=== PATIENT | male | born 1970 | race American Indian/Alaskan Native ===

== ENCOUNTER 2021-05-09 03:23 | Emergency (ER) | payer MEDICARE, MEDICAID, SELFPAY ==
[2021-05-09] VITALS (10 sets, daily range): BP systolic 102–145; BP diastolic 67–103; PULSE 108–144; RESP 12–24; TEMP 36.6; O2SAT 95–98
--- NOTE | 2021-05-09 03:15 | RT.EKG_ITS ---
APPROVED REPORT Exam: Resting ECG Reason for Exam: chest pain Patient Location: E HR:124 bpm ECG Measurements Heart Rate 124 AXIS [place] 132 P 63 QRSd 78 QRS 58 QT 304 T 39 QTc 437 Conclusion Sinus tachycardia...rate> 99 Probable left atrial enlargement...P >50mS, <-0.10mV V1 Physician: no stemi
--- NOTE | 2021-05-09 03:30 | DI.RAD_ITS ---
Exam(s) XR PORTABLE CHEST AP EXAM: XR PORTABLE CHEST AP CLINICAL HISTORY: central chest pain after arrest. TECHNIQUE: 2D digital imaging was performed. COMPARISON: No exams were available for comparison FINDINGS: Heart size is normal. The mediastinum is not widened. Lungs are clear. No infiltrates nor obvious pleural effusions. IMPRESSION: No acute pulmonary findings on this single AP portable view of the chest. DATA REPOSITORY: RADIATION DOSE DELIVERED: All CT scans at this facility use at least one of these dose optimization techniques: automated exposure control; mA and/or kV adjustment per patient size (includes targeted e xams where dose is matched to clinical indication); or iterative reconstruction.
--- NOTE | 2021-05-09 03:39 | ED.GENADUL_ITS ---
Discharge Plan Disposition Patient Disposition: HOME Condition: Good Discharge Details Clinical Impression: Musculoskeletal chest pain ED Provider: Dwight Call Home Meds and New Rx's Prescriptions: Continued albuterol 90 mcg/actuation Aerosol 2 mcg INHALATION QID PRN PRNRF: 0 escitalopram oxalate [Lexapro] 20 mg Tablet 20 mg PO DAILY RF: 0 Discharge Instructions Instructions: Chest Pain (ED) Additional Instructions: At this time your symptoms do not appear consistent with a heart attack. Your symptoms are likely secondary to a muscle sprain and spasm. If you notice any worsening of your symptoms, or any new symptoms such as vomiting, diarrhea, fever, chills, shortness of breath, chest pain, numbness, weakness, or fainting , please return immediately to the emergency department for reevaluation. Please follow up with your primary care provider as soon as possible for reassessment and reevaluation. As always, it was a pleasure participating in your medical care today. Medical Decision Making 50-year-old male who is new to the area, presents today for medical evaluation after being brought from the police department. Patient admits to a history of high cholesterol, mini stroke, emphysema, but is not on any blood thinners. Patient contacted 911 for various concerns earlier today, and then eventually was put into custody. During which. Patient states he developed chest pain which she attributed to panic attack. EMS was called, patient refus ed evaluation by EMS. Patient was then brought to the emergency department for further management. Patient describes the pain is achy in the center of his chest and brought about by anxiety and panic. He denies any tearing or ripping sensation. He denies any previous cardiac history. He denies any cocaine use but does admit to alcohol use this evening. He denies any exertional dyspnea. He denies any recent traumas. He does admit to tobacco abuse. No other complaints at this time. No other modifying factors. Physical exam demonstrates reproducible anterior chest wall pain. Bedside u ltrasound demonstrates no evidence of pericardial effusion. No signs of significant wall motion abnormalities that I can appreciate. Differential is highest for musculoskeletal chest pain and anxiety, however cardiac etiology is certainly on the differential. Symptoms have been present for greater than 3 hours at this time. We will get screening EKG and troponin, portable chest x- ray, get baby aspirin, monitor closely and reassess. Patient remains in police custody. 4:17 AM Laboratory work-up is returned, no significant abnormalities. No white count bandemia or left shift. Troponin normal. Lipase normal. Chest x-ray negative for acute process. Bedside ultrasound shows no significant abnormalities. Patient has reproducible musculoskeletal chest pain, and I suspect this is the c ause of the patient's symptoms. Symptoms appear inconsistent with ACS. Patient stable for discharge. I have extensively reviewed the treatment plan and discharge instructions with the patient. I have addressed all patient concerns at this time. The patient was made aware of what symptoms to monitor for that would warrant a return to the emergency department. Discussed the plan with the patient, they demonstrate verbal understanding and agreement with our assessment and plan at this time. The documentation in this chart was dictated using [employer] dictation software. Please excuse any dictation errors. FINDINGS: Lungs: Unremarkable. No consolidation. Pleural spaces: Unremarkable. No pleural effusion. No pneumothorax. Heart/Mediastinum: Unremarkable. No cardiomegaly. Bones/joints: Unremarkable. IMPRESSION: No acute findings. Thank you for allowing us to participate in the care of your patient. Dictated and Authenticated by: Luis Borjas MD 05/09/2021 4:15 AM Eastern Time ([place] & [place]) HPI General Date/Time Provider Initiated Documentation: 05/09/21 03:24 . HPI Narrative: 50-year-old male who is new to the area, presents today for medical evaluation after being brought from the police department. Patient admits to a history of high cholesterol, mini stroke, emphysema, but is not on any blood thinners. Patient contacted 911 for various concerns earlier today, and then eventually was put into custody. During which. Patient states he developed chest pain which she attributed to panic attack. EMS was called, patient refused evaluation by EMS. Patient was then brought to the emergency department for further management. Patient describes the pain is achy in the center of his chest and brought about by anxiety and panic. He denies any tearing or ripping sensation. He denies any previous cardiac history. He denies any cocaine use but does admit to alcohol use this evening. He denies any exertional dyspnea. He denies any recent traumas. He does admit to tobacco abuse. No other complaints at this time. No other modifying factors. Related Data Home Medications Medication Instructions Recorded Confirmed albuterol 2 mcg INHALATION QID PRN PRN 05/09/21 05/09/21 escitalopram oxalate [Lexapro] 20 mg PO DAILY 05/09/21 05/09/21 Allergies Allergy/AdvReac Type Severity Reaction Status Date / Time No Known Drug Allergies Allergy Unverified 05/09/21 03:38 General Stated Complaint: Chest Pain MAC: 2 Review of Systems All systems reviewed & are unremarkable except as noted in HPI and below PFSH Social History Smoking/Tobacco Use Status: Current every day Tobacco Type: cigarettes Smoking risk assessment performed?: Yes Alcohol Intake: current Alcohol Intake frequency: a few times a week Alcohol type: beer Drug use: Rarely Substance use type: marijuana Do you feel safe at home: Yes Do you feel safe in your relationship?: Yes Exam Narrative Exam Narrative: 1.Const: Well-nourished, Well-developed, appearing stated age 2.Eyes: PERRL, no conjunctival injection, and symmetrical lids. 3.ENT: Atraumatic external nose and ears. Moist MM. Neck: Symmetric, trachea midline, No thyromegaly. 4.CVS: +S1/S2, No murmurs or gallops. Peripheral pulses 2+ and equal in all extremities. Brisk capillary refill in all extremities.. Reproducible anterior chest wall chest pain, which the patient states is the pain that he is feeling. 5.RESP: Unlabored respiratory effort. Clear to auscultation bilaterally. No wheezes rales or rhonchi 6.GI: Soft, Nontender/Nondistended, No hepatosplenomegaly. No guarding or rebound. 7.MSK: Normocephalic/Atraumatic, Extremities w/o deformity or ttp No cyanosis or clubbing, Normal movement of all extremities, no calf tenderness 8.Skin: Warm, Dry. No rashes or lesions. 9.Neuro: compensation specialist II-XII grossly intact. Sensation grossly intact, no focal neurologic deficits. 10.Psych: (AAO) x3. Appropriate mood and affect Course Vital Signs Vital signs: Vital Signs Temperature 36.6 C 05/09/21 03:30 Pulse 128 H 05/09/21 03:30 Respiratory Rate 21 05/09/21 03:30 Blood Pressure 131/103 H 05/09/21 03:30 Pulse Oximetry 96 05/09/21 03:30 Temperature 36.6 C 05/09/21 03:30 Pulse 128 H 05/09/21 03:30 Respiratory Rate 21 05/09/21 03:30 Blood Pressure 131/103 H 05/09/21 03:30 Blood Pressure Position Supine 05/09/21 03:30 Pulse Oximetry 96 05/09/21 03:30 Oxygen Delivery Method Room Air 05/09/21 03:30 Oxygen Flow Rate 0 05/09/21 03:30 Pain Level 7 05/09/21 03:30
[2021-05-09 03:46] LABS: Abs Immature Grans 0.04 10^3/uL (0.0-0.06); Absolute Eosinophil Count 0.11 10^3/uL (0.0-0.7); Absolute Lymphocyte Count 1.48 10^3/uL (1.2-3.4); Absolute Monocyte Count 0.71 10^3/uL (0.1-0.8); Absolute Neutrophil Count 5.34 10^3/uL (1.2-6.7); Basophils % 1.3; Eosinophils % 1.4; HCT 46.4 % (40.0-50.0); HGB 15.3 g/dL (13.5-17.5); Immature Grans % 0.5; MCH 30.7 pg (27.0-33.0); MCV 93.2 fL (80-95); MPV 9.2 fL (8.0-11.0); Monocytes % 9.1; Neutrophils % 68.7; Nucleated RBC 0 %; Platelet Count 353 10^3/uL (130-400); RBC 4.98 10^6/uL (4.36-5.78); RDW 12.8 % (11.8-14.1); RDW-SD 43.8 fL; WBC 7.78 10^3/uL (4.4-10.8)
[2021-05-09] MEDS: Normal Saline 1,000 ML 1000 ML IV (03:46)
[2021-05-09] MEDS: Aspirin 81 MG CHEW 324 MG CH (03:46)
[2021-05-09 04:00] LABS: ALT 41 U/L (16-63); AST 33 U/L (15-37); Alkaline Phosphatase 80 U/L (46-116); Anion Gap 15.1 mmol/L (3-11); BUN 7 mg/dL (7-18); Bilirubin, Total 0.2 mg/dL (0.2-1.0); CO2 20.9 mmol/L (21.0-32.0); CREATININE 0.9 mg/dL (0.70-1.30); Calcium 8.7 mg/dL (8.5-10.1); Chloride 108 mmol/L (98-107); ETHANOL BLOOD 171.9 mg/dL (<3); Glucose 105 mg/dL (74-106); Lipase 308 U/L (73-393); Sodium 144 mmol/L (136-145); Total Protein 7.7 g/dL (6.4-8.2)
[2021-05-09 04:05] LABS: Troponin I < 0.05 ng/mL (<0.06)
--- NOTE | 2021-05-09 04:15 | DI.VRAD_ITS ---
PROCEDURE INFORMATION: Exam: XR Chest Exam date and time: 05/09/2021 3:39 AM Age: 50 years old Clinical indication: Patient HX: Central chest pain after arrest TECHNIQUE: Imaging protocol: XR of the chest. Views: 1 view. COMPARISON: No relevant prior studies available. FINDINGS: Lungs: Unremarkable. No consolidation. Pleural spaces: Unremarkable. No pleural effusion. No pneumothorax. Heart/Mediastinum: Unremarkable. No cardiomegaly. Bones/joints: Unremarkable. IMPRESSION: No acute findings. Dictated and Authenticated by: Luis Borjas MD. Ordering:BALWINDER Quintanilla MD
== END 2021-05-09 04:20 | disposition home or self-care (01) ==
LOC: ER 04:31
PROVIDERS: Emergency Provider Student in an Organized Health Care Education/Training Program
DX: R07.89 Other chest pain (principal); F10.10 Alcohol abuse, uncomplicated; Y90.6 Blood alcohol level of 120-199 mg/100 ml
CPT/HCPCS: 36415; 80053; 80307; 83690; 93005; 96360; 99285; 71045; 80320; 84484; 85025; 93010; 99284

== ENCOUNTER 2024-06-08 09:54 | Outpatient (REF) | payer MEDICARE, SELFPAY ==
--- OUTSIDE RECORDS SUMMARY | 2024-06-08 09:56 | XMS_ITS | Continuity of Care Document ---
Author Organization [place] [facility] Address [address] [place] [address] Assessment No assessment recorded. Plan of Treatment Reminders Order Date Submit Date Provider Last Modified By Organization Details Last Modified Time Details Appointments Nurse Visit 2023 08:30A M Not available Not available Not available Follow Up 2023 08:30A M Not available Not available Not available Lab venipunct ure 2023 024 [facility] (Registration ), [address] [place] [address] [place], [address], 06/08/2024 08:54:26 Referral None recorded. Procedures None recorded. Surgeries None recorded. Imaging None recorded. Medication Orders None recorded. Patient TargetsNo targets recorded. Patient Instructions Encounter Date Encounter Id Patient Instructions Last Modified By Organization Details Last Modified Time 06/08/2024 [id number] specimen collection & handling* Not available 06/08/2024 08:54:26 Reason for Referral None Reported. Results Created Date Observation Date Name Description Value Unit Range Abnormal Flag Note LastModifiedBy Organization Detail LastModifiedTime 06/08/2006/08/2024 speci men colle ction & handl ing* Specimen collection and handling performed today: Yes Not Available [facility] [address], [place], [address], 06/08/2024 08:19:10 Result Notes None recorded. Problems Name Problem SNOMED Code Status Onset Date Resolution Date Notes Provider Name and Address Organization Details Recorded Time Alcohol dependence 80778591 Active 2023 KB HARMON MA null, [facility]. 4 09:49:11 Bilateral shoulder joint pain 5017057006576 9104 Active 2023 KB HARMON MA null, [facility] 4 09:49:41 Chest pain 79323986 Active 2023 KB HARMON MA null, [facility]. 4 09:49:54 Chronic neck pain 0920414040703 Active 2023 KB HARMON MA null, [facility] 4 09:50:19 Delusional disorder 31944038 Active 2023 KB HARMON MA null, [facility] 4 09:53:47 Depressive disorder 57806464 Active 2023 KB HARMON MA null, [facility] 4 09:53:57 Dysplastic nevus of skin 909408290 Active 2023 KB HARMON MA null, [facility] 4 09:55:37 Functional abdominal pain syndrome 834849365 Active 2023 KB HARMON MA null, [facility]. 4 09:56:00 Gastritis 7345971 Active 2023 KB HARMON MA null, [facility]. 4 09:56:10 Hip pain 99785317 Active 2023 KB HARMON MA null, [facility]. 4 09:56:19 History of atypical nevus 2057931027148 Active 2023 KB HARMON MA null, [facility] 4 09:56:43 History of transient ischemic attack 398472725 Active 2023 KB HARMON MA null, [facility] 4 09:57:04 Housing problem 518293131 Active 2023 KB HARMON MA null, [facility] 4 09:57:15 Hypertensi ve disorder 52155701 Active 2023 KB HARMON MA null, [facility] 4 09:57:27 Hyperlipid emia 86359902 Active 2023 KB HARMON MA null, [facility] 4 09:57:35 Idiopathic peripheral neuropathy 69765227 Active 2023 KB HARMON MA null, [facility] 4 09:58:06 Multiple nodules of lung 141835471 Active 2023 KB HARMON MA null, [facility] 4 09:58:23 Pain in right hip joint 6456645066167 02 Active 2023 KB HARMON MA null, [facility] 4 09:58:40 Painful spasm of anus 67006469 Active 2023 KB HARMON MA null, [facility] 4 09:58:55 Posttrauma tic stress disorder 15745477 Active 2023 KB HARMON MA null, [facility] 4 09:59:18 Psychotic disorder 19440288 Active 2023 KB HARMON MA null, [facility]. 4 09:59:38 Shoulder pain 40018797 Active 2023 KB HARMON MA null, [facility]. 4 10:00:35 Smoker 97990814 Active 2023 KB HARMON MA null, [facility] 4 10:00:42 Transient cerebral ischemia 419086498 Active 2023 KB HARMON MA null, [facility] 4 10:00:59 Vitamin D deficiency 56295618 Active 2023 MEGHAN SALAZAR, [facility] 10:01:30 Problem Notes None recorded. Medical Equipment None Reported. Allergies Allergen ID Allergen Name Allergen Category Reaction Reaction Severity Criticality Documentation Date Start Date Code Code System Note Provider Name and Address Organization Details Recorded Time 80471 aspirin medicatio n Not available Not available Not available 05/14/2024 1191 RxNorm MEGHAN SALAZAR, [facility] 10:05:22 28621 weed pollen environme nt,medica tion Not available Not available Not available 05/14/2024 MEGHAN SALAZAR, [facility] 10:05:33 Medications Name Sig Start Date Stop Date Status Note LastModified by Organization Details LastModified Time pravastatin 10 mg tablet TAKE 1 TABLET BY MOUTH ONCE DAILY AT NIGHT AT BEDTIME 06/07 completed Not Available Not Available Not Available diltiazem CD 120 mg capsule,ext ended release 24 hr TAKE 1 CAPSULE BY MOUTH ONCE DAILY active Not Available Not Available No t Available pravastatin 20 mg tablet TAKE 1 TABLET BY MOUTH ONCE DAILY active Not Available Not Available No t Available amoxicillin 875 mg-potassiu m clavulanate 125 mg tablet TAKE 1 TABLET BY MOUTH EVERY 12 HOURS FOR 7 DAYS 05/14 completed Not Available Not Available Not Available bupropion HCl XL 150 mg 24 hr tablet, extended release Take one tablet daily for 7 days, then increase to two tablets daily, for depressio n 2023 active Not Available Not Available Not Avai lable Symbicort 160 mcg-4.5 mcg/actuati on HFA aerosol inhaler INHALE 2 PUFFS BY MOUTH TWICE DAILY active Not Available Not Available No t Available Vitamin D3 125 mcg (5,000 unit) tablet Take 1 tablet every day by oral route. active Not Available Not Available No t Available cholecalcif jim (vit D3) 1,000 unit-vitami n K2 (MK4) 100 mcg tablet Take by oral route. 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 06/07/2024 [email or web address] Information not available 06/07/2024 At What Age Did You Start Smoking Tobacco? 17 [email or web address] Information not available 05/14/2024 How Much Tobacco Do You Smoke? 0.5 PPD [email or web address] Information not available 05/14/2024 Has Tobacco Cessation Counseling Been Provided? Yes [email or web address] Information not available 06/07/2024 On What Date Was Tobacco Cessation Counseling Provided? 06/07/2024 Information not available 06/07/2024 Do You Or Have You Ever Used Any Other Forms Of Tobacco Or Nicotine? No [email or web address] Information not available 06/07/2024 Sex: Male Functional Status None recorded. Mental Status None recorded. Family History Relationship Description Onset Age of this Age Resolved Age Notes LastModified by Organization Details LastModified Time Father Alcohol abuse [email or web address] Not available 05/14 10:06:47 Father Depressive disorder Not available 05/14 10:06:59 Father Blood coagulation disorder [email or web address] Not available 05/14 10:07:42 Father Heart disease [email or web address] Not available 05/14 10:07:52 Mother Alcohol abuse Not available 05/14 10:06:47 Mother Depressive disorder [email or web address] Not available 05/14 10:06:59 Medical History No medical history recorded. Immunizations Vaccine Type Date Status Provider Name and Address Organization Details Recorded Time SARS-COV-2 (COVID-19) vaccine, UNSPECIFIED 10/06/2020 completed MYCHAL BELL, [facility] 05/25/2024 10:57:12 SARS-COV-2 (COVID-19) vaccine, UNSPECIFIED 11/06/2020 completed MYCHAL BELL, [facility] 05/25/2024 10:57:20 SARS-COV-2 (COVID-19) vaccine, UNSPECIFIED 08/06/2021 MYCHAL Christiansen, [facility] 05/25/2024 10:57:28 Hep B, unspecified formulation 07/19/2014 completed MYCHAL BELL, [facility] 05/25/2024 11:03:54 Hep B, unspecified formulation 02/07/2015 completed MYCHAL BELL, [facility] 05/25/2024 11:04:00 Hep B, unspecified formulation 08/08/2015 completed MYCHAL BELL, [facility] 05/25/2024 11:04:09 pneumococcal polysaccharide PPV23 01/09/2016 completed MYCHAL BELL, [facility] 05/25/2024 11:21:46 Tdap 02/07/2015 completed MYCHAL BELL, [facility] 05/25/2024 11:22:08 Tdap 04/09/2018 completed MYCHAL BELL, [facility] 05/25/2024 11:22:28 Td(adult) unspecified formulation 09/15/2000 completed MYCHAL BELL, [facility] 05/25/2024 11:22:48 influenza, unspecified formulation 07/12/2023 MYCHAL Christiansen, [facility] 05/25/2024 11:23:23 influenza, unspecified formulation 07/05/2015 completed MYCHAL BELL, [facility] 05/25/2024 11:23:31 Past Encounters Encounter ID Performer Location Encounter Start Date Encounter Closed Date Diagnosis/Indication Diagnosis SNOMED-CT Code Diagnosis ICD10 Code [id number] CHAD TANG [address] [address] 06/07/2024 10:51:41 06/07/2024 11:57:25 Hypertensive disorder 52974622 I10 Alcohol dependence 48018 003 F10.20 Depressive disorder 3548 9007 F32.A Legal problem 14319561 Z 65.3 [facility] 32966402 E78.5 [id number] BEN ANGUIANO LPN [address] [address] 06/08/2024 08:10:39 06/08/2024 08:48:02 [facility] [id number] E78.5 Health Concerns Section Related Observation LastModified by Organization Detai ls LastModified Time None Recorded Concern Status LastModified by Organization Details LastModified Time None Recorded Payers Encounter Date Sequence Insurance Name Policy Number Policy Nicholson Covered Member ID Nicholson Member ID Guarantor Name 06/08/2024 1 [facility] (MEDICARE REPLACEMENT/A DVANTAGE - PPO) [id number] Luis Vaughn [id number] Luis Vaughn
--- OUTSIDE RECORDS SUMMARY | 2024-06-08 09:56 | XMS_ITS | Continuity of Care Document ---
Author Organization [facility], [facility] Address [address] [place] [address] Assessment Encounter Date Assessment Date Assessment LastModified by Organization Details LastModified Time 06/07/2024 06/07/2024 The total time devoted to today's encounter, including both the sada-zo-xjfe time with the patient and/or family/caregi catalina and tyx-bvhh-ne-f valeriano time I personally spent is 50 minutes. Not available 06/07/2024 12:17:59 Plan of Treatment Reminders Order Date Submit Date Provider Last Modified By Organization Details Last Modified Time Details Appointments Nurse Visit 2023 08:30A M Not available Not available Not available Follow Up 2023 08:30A M Not available Not available Not available Lab CMP, serum or plasma 2023 [facility] (Registration ), [address] [place] [address] [place], [address], 06/07/2024 12:00:59 lipid panel, serum 2023 024 [facility] (Registration ), [address] [place] [address] [place], [address], 06/07/2024 12:00:59 Referral None recorded. Procedures None recorded. Surgeries None recorded. Imaging None recorded. Medication Orders bupropion HCl XL 150 mg 24 hr tablet, extended release 2023 024 [facility], [address], [place], [place], [id number], 06/07/2024 11:56:31 Patient TargetsNo targets recorded. Patient Instructions Encounter Date Encounter Id Patient Instructions Last Modified By Organization Details Last Modified Time 06/07/2024 [id number] 1. Strongly you recommend that you quit smoking and abstain from alcohol completely. 2. I encourage you to make an appointment to see Radha Bonham here at the clinic 3. Start Bupropion 150 mg one tablet once daily for 7 days, then increase to two tablets daily 4. Make a nurse visit for fasting lab work 5. Try to avoid picking at your fingers 6. I will work on getting you into the dentist Not available 06/07/2024 11:56:08 Reason for Referral None Reported. Problems Name Problem SNOMED Code Status Onset Date Resolution Date Notes Provider Name and Address Organization Details Recorded Time Alcohol dependence 65628619 Active 2023 MEGHAN SALAZAR, [facility] 4 09:49:11 Bilateral shoulder joint pain 5400155112577 9104 Active 2023 MEGHAN SALAZAR, [facility] 4 09:49:41 Chest pain 59197855 Active 2023 MEGHAN SALAZAR, [facility] 4 09:49:54 Chronic neck pain 8585705306245 Active 2023 MEGHAN SALAZAR, [facility] 4 09:50:19 Delusional disorder 34350867 Active 2023 MEGHAN SALAZAR, [facility] 4 09:53:47 Depressive disorder 45567965 Active 2023 MEGHAN SALAZAR, [facility] 4 09:53:57 Dysplastic nevus of skin 299805988 Active 2023 MEGHAN SALAZAR, [facility] 4 09:55:37 Functional abdominal pain syndrome 878559992 Active 2023 MEGHAN SALAZAR, [facility] 4 09:56:00 Gastritis 0446177 Active 2023 KB HARMON MA null, [facility] 4 09:56:10 Hip pain 50958206 Active 2023 KB HARMON MA null, [facility] 4 09:56:19 History of atypical nevus 9854097947802 Active 2023 KB HARMON MA null, [facility] 4 09:56:43 History of transient ischemic attack 542568412 Active 2023 KB HARMON MA null, [facility] 09:57:04 Housing problem 458409312 Active 2023 KB HARMON MA null, [facility] 09:57:15 Hypertensi ve disorder 82551577 Active 2023 KB HARMON MA null, [facility] 4 09:57:27 Hyperlipid emia 30338784 Active 2023 KB HARMON MA null, [facility] 4 09:57:35 Idiopathic peripheral neuropathy 82939210 Active 2023 KB HARMON MA null, [facility] 4 09:58:06 Multiple nodules of lung 336974125 Active 2023 KB HARMON MA null, [facility] 4 09:58:23 Pain in right hip joint 3384511800222 02 Active 2023 KB HARMON MA null, [facility] 4 09:58:40 Painful spasm of anus 51753452 Active 2023 KB HARMON MA null, [facility] 4 09:58:55 Posttrauma tic stress disorder 02500752 Active 2023 MEGHAN SALAZAR, [facility] 4 09:59:18 Psychotic disorder 38419406 Active 2023 MEGHAN SALAZAR, [facility] 4 09:59:38 Shoulder pain 09309539 Active 2023 MEGHAN SALAZAR, [facility] 4 10:00:35 Smoker 46975475 Active 2023 KB HARMON MA null, [facility] 4 10:00:42 Transient cerebral ischemia 680574208 Active 2023 MEGHAN SALAZAR, [facility] 4 10:00:59 Vitamin D deficiency 12356703 [facility] 10:[facility]30 Problem Notes None recorded. Medical Equipment None Reported. Allergies Allergen ID Allergen Name Allergen Category Reaction Reaction Severity Criticality Documentation Date Start Date Code Code System Note Provider Name and Address Organization Details Recorded Time 94878 aspirin medicatio n Not available Not available Not available 05/14/2024 1191 RxNorm MEGHAN SALAZAR, [facility] 4 10:05:22 56241 weed pollen environme nt,medica tion Not available Not available Not available 05/14/2024 [facility] 10:05:33 Medications Name Sig Start Date Stop [...] Not Available Not Available Not Available Vitals Date Recorded Body height Body mass index (BMI) Body weight Oxygen saturation Oxygen saturation in Arterial blood by Pulse oximetry Heart rate Systolic blood pressure Diastolic blood pressure Provider Name and Address Organization Details Last Updated DateTime 172.97 cm 29 kg/m2 33500.8 2 g 95 % 95 % 85 /min 114 mm[Hg] 86 mm[Hg] Zachary Miranda RN [facility] 11:16:55 Social History Question Answer Notes LastModified by Organizat ion Details LastModified Time Tobacco Smoking Status Current Every Day Smoker MEGHAN SALAZAR, [facility] 05/14/2024 10:06:19 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 06/07/2024 Information not available 06/07/2024 At What Age Did You Start Smoking Tobacco? 17 Information not available 05/14/2024 How Much Tobacco Do You Smoke? 0.5 PPD Information not available 05/14/2024 Has Tobacco Cessation Counseling Been Provided? Yes [email or web address] Information not available 06/07/2024 On What Date Was Tobacco Cessation Counseling Provided? 06/07/2024 [email or web address] Information not available 06/07/2024 Do You Or Have You Ever Used Any Other Forms Of Tobacco Or Nicotine? No [email or web address] Information not available 06/07/2024 Sex: Male Functional Status None recorded. Mental Status None recorded. Family History Relationship Description Onset Age of this Age Resolved Age Notes LastModified by Organization Details LastModified Time Father Alcohol abuse [email or web address] Not available 05/14 10:06:47 Father Depressive disorder [email or web address] Not available 05/14 10:06:59 Father Blood coagulation disorder [email or web address] Not available 05/14 10:07:42 Father Heart disease [email or web address] Not available 05/14 10:07:52 Mother Alcohol abuse [email or web address] Not available 05/14 10:06:47 Mother Depressive disorder [email or web address] Not available 05/14 10:06:59 Medical History No medical history recorded. Immunizations Vaccine Type Date Status Provider Name and Address Organization Details Recorded Time SARS-COV-2 (COVID-19) vaccine, UNSPECIFIED 10/06/2020 completed MYCHAL BELL, [facility] 05/25/2024 10:57:12 SARS-COV-2 (COVID-19) vaccine, UNSPECIFIED 11/06/2020 completed MYCHAL BELL, [facility] 05/25/2024 10:57:20 SARS-COV-2 (COVID-19) vaccine, UNSPECIFIED 08/06/2021 MYCHAL Christiansen, [facility] 05/25/2024 10:57:28 Hep B, unspecified formulation 07/19/2014 MYCHAL Christiansen, [facility] 05/25/2024 11:03:54 Hep B, unspecified formulation 02/07/2015 MYCHAL Christiansen, [facility] 05/25/2024 11:04:00 Hep B, unspecified formulation 08/08/2015 MYCHAL Christiansen, [facility] 05/25/2024 11:04:09 pneumococcal polysaccharide PPV23 01/09/2016 completed MYCHAL BELL, [facility] 05/25/2024 11:21:46 Tdap 02/07/2015 completed MYCHAL BELL, [facility], [facility] 05/25/2024 11:22:08 Tdap 04/09/2018 completed MYCHAL BELL, [facility] 05/25/2024 11:22:28 Td(adult) unspecified formulation 09/15/2000 completed MYCHAL BELL, [facility] 05/25/2024 11:22:48 influenza, unspecified formulation 07/12/2023 completed MYCHAL BELL, [facility] 05/25/2024 11:23:23 influenza, unspecified formulation 07/05/2015 completed MYCHAL BELL, [facility] 05/25/2024 11:23:31 Past Encounters Encounter ID Performer Location Encounter Start Date Encounter Closed Date Diagnosis/Indication Diagnosis SNOMED-CT Code Diagnosis ICD10 Code [id number] HUE[address] [address] 06/07/2024 10:51:41 06/07/2024 11:57:25 Hypertensive disorder 17858471 I10 Alcohol dependence 76770 003 F10.20 Depressive disorder 3548 9007 F32.A Legal problem 50223673 Z 65.3 Hyperlipidemia 53078878 E78.5 Health Concerns Section Related Observation LastModified by Organization Detai ls LastModified Time None Recorded Concern Status LastModified by Organization Details LastModified Time None Recorded Payers Encounter Date Sequence Insurance Name Policy Number Policy Nicholson Covered Member ID Nicholson Member ID Guarantor Name 06/07/2024 1 [facility] (MEDICARE REPLACEMENT/A DVANTAGE - PPO) [id number] Luis Vaughn [id number] Luis Vaughn Notes Date Note Type Note Provider Name and Address Organization Details Recorded Time 06/07/2024 text/html HPI Notes: cc ne w patient to our office Loose tooth - became loose a few days ago, has had night sweats. No discharge in his mouth, no current infection Depression - is feeling anxious and depressed. 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 Has hx of trauma as a child. Has been on wellbutrin in the past, has been to therapy in the past, felt it took too much of his time. Feels he has slowed way down and making mistakes. Had a recent DUI, has made stupid mistakes and making stupid comments. Feels he is highly intelligent and shouldn't be stifled. 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 Does not feel paranoid but feels he is being watched by people through his neighbors, is not allowed to go to the stores and library in town. talks to the police frequently. People are worried about what he does in his bedroom Going to court for his DUI, has had several, this last one hits the felony stage Alcoholism - drinking one x monthly. feels due to his depression Smoker - smokes about 1 ppd, has been smoking since age 17 Currently on disability for depression, PTSD, Emphysema Lung nodules - improved Hyperlipidemia - takes pravastatin intermittently HTN - takes his diltiazem some days Weight gain - was 89 on his 49th birthday Gets a rash and peeling skin on the ends of his fingers, has used triple antibiotic ointment and a band aid. He picks his fingers Has a bump on his back the he is worried about HUEY FERMIN, [employer] [address], [place], [address], [facility]. 06/07/2024 12:20:31
[2024-06-08 19:38] LABS: ALT 16 U/L (16-63); AST 32 U/L (15-37); Albumin 3.8 g/dL (3.4-5.0); Alkaline Phosphatase 90 U/L (46-116); Anion Gap 11.5 mmol/L (3-11); BUN 8 mg/dL (7-18); Bilirubin, Total 0.28 mg/dL (0.2-1.0); CO2 20.5 mmol/L (21.0-32.0); CREATININE 1.1 mg/dL (0.70-1.30); Calcium 8.9 mg/dL (8.5-10.1); Calculated LDL 97 mg/dL (<100); Chloride 106 mmol/L (98-107); Cholesterol 200 mg/dL (<200); Estimated GFR 79.77 (mL/min/1.73m2); Glucose 94 mg/dL (74-106); HDL Cholesterol 35 mg/dL (40-60); Potassium 4.8 mmol/L (3.5-5.1); Sodium 138 mmol/L (136-145); Total Protein 7.2 g/dL (6.4-8.2); Triglyceride 343 mg/dL (<150)
== END 2024-06-08 09:55 | disposition home or self-care (01) ==
LOC: NCHCN 09:54
PROVIDERS: PCP Nurse Practitioner Family; Visit Provider Nurse Practitioner Family
DX: E78.5 Hyperlipidemia, unspecified (principal)
CPT/HCPCS: 80053; 80061

== ENCOUNTER 2024-06-29 13:10 | Outpatient (REF) | payer MEDICARE, SELFPAY ==
[2024-06-29 19:08] LABS: HCT 45.2 % (40.0-50.0); HGB 15.3 g/dL (13.5-17.5); MCH 31.2 pg (27.0-33.0); MCHC 33.8 % (32.0-36.0); MCV 92 fL (80-95); MPV 10.3 fL (8.0-11.0); Platelet Count 394 10^3/uL (130-400); RBC 4.91 10^6/uL (4.36-5.78); RDW 12.5 % (11.8-14.1); RDW-SD 42.3 fL; WBC 8.24 10^3/uL (4.4-10.8)
[2024-06-29 19:36] LABS: TSH 1.99 uIU/mL (0.36-3.74)
== END 2024-06-29 13:11 | disposition home or self-care (01) ==
LOC: NCHCN 13:10
PROVIDERS: PCP Nurse Practitioner Family; Visit Provider Nurse Practitioner Family
DX: R53.83 Other fatigue (principal)
CPT/HCPCS: 85027; 84443

== ENCOUNTER 2024-11-01 10:16 | Outpatient (REF) | payer MEDICARE, SELFPAY ==
[2024-11-01 19:37] LABS: ALT 39 U/L (16-63); AST 31 U/L (15-37); Alkaline Phosphatase 92 U/L (46-116); Anion Gap 10.8 mmol/L (3-11); BUN 13 mg/dL (7-18); Bilirubin, Total 0.38 mg/dL (0.2-1.0); CO2 23.2 mmol/L (21.0-32.0); CREATININE 1.1 mg/dL (0.70-1.30); Calcium 9.3 mg/dL (8.5-10.1); Calculated LDL 92 mg/dL (<100); Chloride 108 mmol/L (98-107); Cholesterol 146 mg/dL (<200); Estimated GFR 79.28 (mL/min/1.73m2); Glucose 96 mg/dL (74-106); HDL Cholesterol 32 mg/dL (40-60); Potassium 4.8 mmol/L (3.5-5.1); Sodium 142 mmol/L (136-145); Total Protein 7.6 g/dL (6.4-8.2); Triglyceride 112 mg/dL (<150)
== END 2024-11-01 10:17 | disposition home or self-care (01) ==
LOC: NCHCN 10:16
PROVIDERS: PCP Nurse Practitioner Family; Visit Provider Nurse Practitioner Family
DX: E78.5 Hyperlipidemia, unspecified (principal)
CPT/HCPCS: 80053; 80061

== ENCOUNTER 2024-11-17 01:54 | Outpatient (CLI) | payer MEDICARE, SELFPAY ==
--- NOTE | 2024-11-17 | DI.CTLCSR_ITS ---
Exam(s) CT CHEST LUNG CANCER SCREEN EXAM: CT CHEST LUNG CANCER SCREEN CLINICAL HISTORY: EX SMOKER, Z87.891, SCREENING FOR LUNG CANCER. TECHNIQUE: Imaging Protocol: Low Dose Technique CONTRAST MATERIAL: None COMPARISON: CR,XR XR PORTABLE CHEST AP from 05/09/2021 FINDINGS: CHEST: LUNGS: No left lung nodules. In the right lung there is a small 2 mm pleural based nodular density i n the peripheral aspect of the right upper lobe. There are no other significant focal right lung fin dings. There are no pleural effusions.. No confluent infiltrate in either lung field. MEDIASTINUM: There is no obvious hilar nor mediastinal adenopathy. CARDIAC: Heart size is normal. There is no pericardial effusion.Caliber of the thoracic aorta is wit hin normal limits. OTHER: OSSEOUS: No significant osseous lesions.No fractures.. IMPRESSION: 1. There is a solitary small 2 mm pleural based nodule in the lateral aspect of right upper lobe. No other focal lung findings nor pleural effusions 2. No obvious intrathoracic adenopathy 3. Lung RADS Cat 2 - Benign Appearance / Behavior: Nodules with a very low likelihood of becoming a c linically active cancer due to size or lack of growth Lung-RADS 1.0 CATEGORIES: Category 0 - Prior chest CT exam(s) being located for comparison. Category 1 - Annual screening in 12 months. No nodules or definitely benign nodules. Category 2 - Annual screening in 12 months. Benign appearance. Nodules with low likelihood of becomin g active cancer. Category 3 - 6-month follow-up. Probably benign. Short-term follow-up suggested. Nodules with low lik elihood of becoming active cancer. Category 4A - 3-month follow-up and CT/PET if >8 mm in size. Suspicious finding. Findings which requi re additional testing. Category 4B - Findings which require additional testing and tissue sampling. Category 4X - Category 3 or 4 nodules with additional features or imaging findings that increases the suspicion of malignancy. Modifier S- Potentially clinically significant findings (non lung cancer) RADIATION DOSE DELIVERED: 27.85mGy.cm Total DLP DATA REPOSITORY: All CT scans at this facility are submitted to the National Radiology Data Registry (NRDR) Dose Index Registry (DIR) with the [employer] (ACR). RADIATION OPTIMIZATION: All CT scans at this facility use at least one of these dose optimization te chniques: automated exposure control; mA and/or kV adjustment per patient size (includes targeted exa ms where dose is matched to clinical indication); or iterative reconstruction.
== END 2024-11-17 02:14 ==
PROVIDERS: PCP Nurse Practitioner Family; Visit Provider Nurse Practitioner Family
DX: Z87.891 Personal history of nicotine dependence (principal); Z12.2 Encounter for screening for malignant neoplasm of respiratory organs; R91.8 Other nonspecific abnormal finding of lung field
CPT/HCPCS: 71271

== ENCOUNTER 2025-02-08 11:05 | Outpatient (CLI) | payer MEDICARE, SELFPAY | END 2025-02-08 11:06 | disposition home or self-care (01) | PROVIDERS: PCP Nurse Practitioner Family; Visit Provider Nurse Practitioner Family | DX: R42 Dizziness and giddiness (principal) | CPT/HCPCS: 93246 ==

== ENCOUNTER 2025-02-21 02:46 | Outpatient (CLI) | payer MEDICARE, SELFPAY ==
--- NOTE | 2025-02-24 13:08 | W.NUTRFU ---
Date of service: 02/21/25 Time of Service: 14:00 Nutrition Note NOTE: Luis referred to nutrition visit for hypertension disorder. 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 States he has lost ~45lbs over the last 4 months and has been sifnificantly upping his exercise - hours a day can be common lately. He states his large meals/portions are now smaller. He has made switches from things like fried chicken to baked chicken and has salads daily. He is looking for some more fine tuning with his diet and feels like we should work together over a series of appts for accountability. We reviewed general concepts like a calorie is not a calorie across the board and how priority should be to eat real food closer to the tree, field, mayorga, animal that it came from. We discussed meal timing and cutting off eating in the evening. We discussed label reading for sodium, sat fat and added sugar as priorities. I gave him menu planning resources based off the following targets: about 2100kcals, 157g protein, 210g total carbs, 21 g limit for added sugars and sat fat, 70g total fat. at least 30 g fiber and limit of 2g sodium. We will meet up again to see how these resources helped with his goal to further improve his eating habits Time Spent in Nutritional Counseling and Treatment: 25 min
== END 2025-02-21 02:47 | disposition home or self-care (01) ==
LOC: DS 02:46
PROVIDERS: PCP Nurse Practitioner Family; Visit Provider Dietitian, Registered
DX: I10 Essential (primary) hypertension (principal)
CPT/HCPCS: 123; 97802; 00123

== ENCOUNTER 2025-03-01 06:56 | Outpatient (CLI) | payer MEDICARE, SELFPAY ==
--- NOTE | 2025-03-01 09:25 | W.CARDEVENT ---
Date of service: 03/01/25 Time of Service: 09:25 Cardiac Event Recorder Referring Provider:: Ria Curry Indications:: Dizziness and syncope Cardiac Event Note: This is a cardiac event monitor. Patient was monitored for 12 days and 20 hours. Rhythm throughout was sinus with an average heart rate of 93. Minimum was 47, maximum 185 There were very rare isolated ventricular ectopic beats. There were very rare isolated atrial premature beats. There were several very brief self-limited atrial runs. These were generally less than 5 beats in length. There was no atrial fibrillation, no high-grade AV block, no pauses greater than 3 seconds. Reported symptoms correlated to sinus tachycardia at 127, also to sinus rhythm at 90
== END 2025-03-01 06:57 | disposition home or self-care (01) ==
LOC: CARDOPNVT 06:56
PROVIDERS: PCP Nurse Practitioner Family; Visit Provider Internal Medicine Cardiovascular Disease
DX: R55 Syncope and collapse (principal); I49.1 Atrial premature depolarization; R42 Dizziness and giddiness
CPT/HCPCS: 93248